=== PATIENT | female | born 1950 | race Caucasian/White ===

== ENCOUNTER 2019-12-04 14:52 | Outpatient (REF) | payer MEDICARE, OTHER, SELFPAY ==
--- NOTE | 2019-12-04 15:02 | XR_ITS ---
EXAMINATION: XR KNEE, LEFT CLINICAL INFORMATION: Pain left knee. COMPARISON: None TECHNIQUE: Four views of the left knee. FINDINGS: There are degenerative changes with narrowing medial knee joint compartment. There are marginal osteophytes medial lateral femoral condyles and borderline spurring tibial plateau. There is no erosive change or chondrocalcinosis. Lateral view shows small suprapatellar effusion. There is spurring at superior aspect patella. Hoffa's fat pad appears normal. There is no fracture or dislocation or destructive process. XR/XR knee LT 4V IMPRESSION: 1. Mild degenerative changes medial knee joint compartment with small suprapatellar effusion. 2. No erosive changes. 3. No fracture or destructive process.
== END 2019-12-04 14:53 | disposition home or self-care (01) ==
LOC: HO.HMGCX 14:52
PROVIDERS: PCP Internal Medicine; Visit Provider Hospitalist
DX: M25.562 Pain in left knee (principal)
CPT/HCPCS: 73564

== ENCOUNTER → 2019-12-12 11:16 | Outpatient (BNVA) | payer MEDICARE, OTHER, SELFPAY | PROVIDERS: PCP Internal Medicine; Visit Provider Orthopaedic Surgery | DX: S83.412A Sprain of medial collateral ligament of left knee, initial encounter (principal); X58.XXXA Exposure to other specified factors, initial encounter; Y93.9 Activity, unspecified; Y92.9 Unspecified place or not applicable; Y99.8 Other external cause status; Z88.1 Allergy status to other antibiotic agents | CPT/HCPCS: 99202 ==

== ENCOUNTER → 2019-12-26 11:17 | Outpatient (BNVA) | payer MEDICARE, OTHER, SELFPAY | PROVIDERS: Visit Provider Orthopaedic Surgery | DX: S83.412D Sprain of medial collateral ligament of left knee, subsequent encounter (principal); Z96.652 Presence of left artificial knee joint | CPT/HCPCS: 99212 ==

== ENCOUNTER → 2020-01-27 13:08 | Outpatient (BNVA) | payer MEDICARE, OTHER, SELFPAY | PROVIDERS: PCP Internal Medicine; Visit Provider Orthopaedic Surgery | DX: S83.412D Sprain of medial collateral ligament of left knee, subsequent encounter (principal) | CPT/HCPCS: 99212 ==

== ENCOUNTER 2020-04-02 13:00 | Outpatient (RCR) | payer MEDICARE, OTHER, SELFPAY ==
--- NOTE | 2020-01-30 12:09 | MHC.PT.EP ---
[facility] [place] Office [place] Office [place] Office [address] Vladimir Kaur [address] [phone] F: [phone] F: [phone] F: [phone] F: [phone] Physical Therapy Plan of Care Date of Evaluation: 01/30/20 Date of Surgery: Diagnosis: sprain of medial collateral ligament of L knee Assessment: 69 y/o F referred to PT for L MCL sprain. She sustained injury after falling from step-stool 12/04/2019 in which her R LE flexed in front of her and her L LE extended behind her. She landed on flexed L medial knee and had immediate bruising and swelling of L knee. Pain and difficulty with standing, housework, standing to cook, step-to pattern for stairs. Examination shows decreased L LE strength, decreased L knee AROM 0-8-103, decreased L HS/hip flexor length, normal SI mechanics, altered L patella static alignmnent, and impair gait pattern. Recommend PT 2x/week for 5 weeks to address impairments, implement HEP, and optimize functional mobility. Frequency and Duration: The patient will be seen 2x/week for 5 weeks Short Term Goals: 3 weeks: 1. I with HEP 2. Pt will demonstrate L knee AROM 0-115 Client Relations Associate Goals: 5 weeks: 1. I with HEP and self management of sx 2. Pt will demonstrate L LE strength improvement of one MMT grade and be able to ascend/descend stairs in step through pattern 3. Pt will be able to ambulate > 45 min with pain < 3/10 Treatment Plan: Modalities to reduce pain, spasms and effusion. Manual therapy to restore motion and function. Therapeutic exercise to improve strength and flexibility. Neuromuscular re-education for posture and balance. Therapeutic activities to return to functional activities of daily living. Electronically signed by: Agatha Bond PT Please sign and return to therapist. Thank you for your referral.
--- NOTE | 2020-04-30 09:19 | MHC.PT.DC ---
[facility] [place] Office [place] Office [place] Office [address] Vladimir Kaur [address] [phone] F: [phone] F: [phone] F: [phone] F: [phone] Physical Therapy Discharge Report Diagnosis: sprain of medial collateral ligament of L knee Date of Surgery: NA Date of Evaluation: 01/30/20 Date of Discharge: 04/30/20 Treatments to Date: 16 Cancellations to Date: 0 No Shows to Date: 1 Discharge Status: Improved Function Independent with HEP Discharge Summary: Pt did not f/u with further visits. At time of last appointment, she was able to don/doff clothing, perform stairs, and ambulate greater distances. She was still having inconsistent pain with painfree days and painful days with noting plateau in PT. It was recommended to f/u with MD at time of last visit. She has not f/u with PT and is therefore d/c. Electronically signed by: Agatha Bond PT Please sign and return to therapist. Thank you for your referral.
== END 2020-04-30 09:20 | disposition home or self-care (01) ==
LOC: HO.PTCHIC 13:00
PROVIDERS: PCP Internal Medicine; Visit Provider Orthopaedic Surgery
DX: S83.412D Sprain of medial collateral ligament of left knee, subsequent encounter (principal)
CPT/HCPCS: 97035; 97110; 97112; 97140; 97161; 97530

== ENCOUNTER → 2020-04-13 13:26 | Outpatient (BNVA) | payer MEDICARE, OTHER, SELFPAY | PROVIDERS: PCP Internal Medicine; Visit Provider Orthopaedic Surgery | DX: S83.242D Other tear of medial meniscus, current injury, left knee, subsequent encounter (principal) | CPT/HCPCS: 99212 ==

== ENCOUNTER 2020-04-16 13:26 | Outpatient (REF) | payer MEDICARE, OTHER, SELFPAY ==
--- NOTE | ~2020-04-16 | MR_ITS ---
EXAMINATION: MR KNEE WITHOUT CONTRAST, LEFT CLINICAL INFORMATION: Tear of medial meniscus. COMPARISON: X-rays of the left knee November 2019 TECHNIQUE: MRI of the knee without contrast was performed using routine sequences on a high-field scanner. FINDINGS: MENISCI: Medial Meniscus: There is blunting and slight irregularity of what appears to be an attenuated posterior horn. There is a small focus of increased signal extending to or adjacent to the tibial articular surface of the body. Findings likely reflect meniscal tearing. Lateral Meniscus: Subtle heterogeneous increased signal in the anterior horn and tiny focus of increased signal along the free edge of the body. Findings suspicious but not definitive for a tear. LIGAMENTS: Cruciate: ACL intact. PCL: There is heterogeneity and slight enlargement of the ligament. This likely reflects partial tearing versus mucoid degeneration. Collateral: Intact. EXTENSOR MECHANISM: Intact. ARTICULAR CARTILAGE/BONE: Patellofemoral Compartment: There is nonuniform up to high-grade cartilage loss most evident along the proximal half of the lateral facet and median ridge of the patella with associated subchondral cystic change and edema. A prominent osteophyte off the proximal pole of the patella and trochlear cartilage is intact. Overall moderate patellofemoral arthrosis given the patellar abnormality. Medial Compartment: There are marginal osteophytes. There is nonuniform up high-grade cartilage loss most evident along the weightbearing portion of the compartment on the femoral side primarily. Mild heterogeneity and surface irregularity on the tibial articular surface where there is also subchondral sclerosis. Overall rkjw-uj-ektdxvfk arthrosis. Lateral Compartment: There are marginal osteophytes. There is scattered cartilage heterogeneity in the weightbearing portion of the compartment on both the femoral and tibial articular surfaces. Overall mild arthrosis. JOINT FLUID AND BURSAE: There is a rdkm-px-auixxyqw joint effusion with synovitis along with a Dumas's cyst. MR/MR knee LT wo con IMPRESSION: Tear of the medial meniscus. Possible tear of the lateral meniscus. Abnormal posterior cruciate ligament compatible with mucoid degeneration or longitudinal intrasubstance partial tearing. Moderate patellofemoral arthrosis. Ofgm-dm-vngevypp medial compartment arthrosis. Mild lateral compartment arthrosis. Akcd-kh-ejtbpdjh joint effusion with synovitis and a jxbam-ww-wvzjshiz sized Dumas's cyst.
== END 2020-04-16 13:27 | disposition home or self-care (01) ==
LOC: HO.MRI 13:26
PROVIDERS: Visit Provider Orthopaedic Surgery
DX: S83.242A Other tear of medial meniscus, current injury, left knee, initial encounter (principal)
CPT/HCPCS: 73721

== ENCOUNTER → 2020-04-21 13:22 | Outpatient (BNVA) | payer MEDICARE, OTHER, SELFPAY | PROVIDERS: PCP Internal Medicine; Visit Provider Orthopaedic Surgery | DX: S83.242A Other tear of medial meniscus, current injury, left knee, initial encounter (principal); X58.XXXA Exposure to other specified factors, initial encounter; Z88.1 Allergy status to other antibiotic agents | CPT/HCPCS: 99212; Q3014 ==

== ENCOUNTER 2020-09-24 14:06 | Outpatient (REF) | payer MEDICARE, OTHER, SELFPAY | END 2020-09-24 14:07 | disposition home or self-care (01) | LOC: HO.HMGCLDS 14:06 | PROVIDERS: PCP Internal Medicine; Visit Provider Internal Medicine | DX: Z20.822 Contact with and (suspected) exposure to COVID-19 (principal) | CPT/HCPCS: C9803; U0003; U0005 ==

== ENCOUNTER 2020-10-25 08:49 | Outpatient (REF) | payer MEDICARE, OTHER, SELFPAY ==
[2020-10-25 11:52] LABS: Anion Gap 12 (12-20); Blood Urea Nitrogen 14 mg/dL (9-16); Calcium 9.6 mg/dL (8.4-10.2); Carbon Dioxide 27 mmol/L (22-29); Chloride 107 mmol/L (96-108); Cholesterol 237 mg/dL; Estimated Glomerular Filt Rate > 60; Glucose Fasting 92 mg/dL (60-99); HDL Cholesterol 63 mg/dL; LDL Cholesterol Calculated 159 mg/dl; Potassium 4.1 mmol/L (3.3-5.1); Sodium 142 mmol/L (135-145); Triglycerides 79 mg/dL
[2020-10-25 12:02] LABS: Vitamin D 25-OH Total 12.8 ng/mL (>30)
== END 2020-10-25 08:50 | disposition home or self-care (01) ==
LOC: HO.HMGCLDS 08:49
PROVIDERS: PCP Internal Medicine; Visit Provider Internal Medicine
DX: Z00.00 Encounter for general adult medical examination without abnormal findings (principal); M81.0 Age-related osteoporosis without current pathological fracture; I10 Essential (primary) hypertension; Z78.0 Asymptomatic menopausal state
CPT/HCPCS: 36415; 80048; 80061; 82306

== ENCOUNTER 2022-03-25 13:37 | Outpatient (REF) | payer MEDICARE, OTHER, SELFPAY ==
[2022-03-25 14:46] LABS: Influenza A PCR NEGATIVE (Negative); Influenza B PCR NEGATIVE (Negative); Resp Syncy Virus RNA Qual PCR NEGATIVE (Negative); SARS COV2 PCR INHOUSE NEGATIVE (Negative)
== END 2022-03-25 13:38 | disposition home or self-care (01) ==
LOC: HO.LNP 13:37
PROVIDERS: Visit Provider Physician Assistant Medical
DX: Z20.822 Contact with and (suspected) exposure to COVID-19 (principal); R05.9 Cough, unspecified
CPT/HCPCS: 0241U

== ENCOUNTER 2023-01-16 12:28 | Outpatient (REF) | payer MEDICARE, OTHER, SELFPAY ==
[2023-01-16 16:40] LABS: Anion Gap 13 (12-20); Aspartate Amino Transferase 17 U/L (5-31); Blood Urea Nitrogen 10 mg/dL (9-16); Calcium 9.9 mg/dL (8.4-10.2); Carbon Dioxide 27 mmol/L (22-29); Chloride 105 mmol/L (96-108); Cholesterol 238 mg/dL (<200); Estimated Glomerular Filt Rate > 60; Glucose Fasting 98 mg/dL (60-99); HDL Cholesterol 72 mg/dL (>40); LDL Cholesterol Calculated 149 mg/dL (<100); Potassium 4.4 mmol/L (3.3-5.1); Sodium 141 mmol/L (135-145); Triglycerides 86 mg/dL (<150)
[2023-01-16 16:43] LABS: Vitamin D 25-OH Total 56.6 ng/mL (>30)
== END 2023-01-16 12:29 | disposition home or self-care (01) ==
LOC: HO.HMGCLDS 12:28
PROVIDERS: PCP Internal Medicine; Visit Provider Internal Medicine
DX: E78.5 Hyperlipidemia, unspecified (principal); M81.0 Age-related osteoporosis without current pathological fracture; Z78.0 Asymptomatic menopausal state
CPT/HCPCS: 36415; 80048; 80061; 82306; 84450

== ENCOUNTER 2023-01-17 11:54 | Outpatient (AMB) | payer MEDICARE, OTHER, SELFPAY ==
[2023-01-17 12:44] VITALS: BP 132/80; PULSE 87; O2SAT 96; BMI 27.7
--- NOTE | 2023-01-17 12:44 | MHC.PC.OV ---
Vital Signs 01/17/23 12:44 Height 5 ft 5 in Weight 166 lb 4 oz BMI 27.7 BP 132/80 Blood Pressure Location Rt brachial Position Sitting Pulse 87 Pulse Source Pulse Oximeter Pulse Oximetry (%) 96 Oxygen Delivery Method Room Air Intake Visit Reasons: Medication review Intake Note: Pt is here to follow up for lab results and needed todays appt to get a refill sent for her Amitriptyline pt just got results of a biopsy of her skin form her Derm in [place] and she was told it was superficial basil cell carcinoma Allergies metronidazole [Flagyl] Allergy (Unknown, Verified 01/17/23 13:15) cdiff Medication List - Last Reconciled 01/17/23 by Raina Jj MD amitriptyline 75 mg (3 x 25 mg) PO BEDTIME [hyaluronic acid po; ] leg brace (Knee Support Brace) PLAYMAKER II, SPACER, WRAP, L S83.412A naproxen (Naprosyn) 500 mg PO BID sennosides (Senna Lax) 8.6 mg PO QDAY Tobacco use date assessed: 01/17/23 Fall risk assessment: No Falls in past year Last assessed Fall Risk: 01/17/23 Dental Screening Dental Screen Date: 01/17/23 Did you have a dental visit in the last 12 months?: Yes Did you have a dental problem in the last 6 months where you did not have access to dental care?: No Was dental information given to patient?: Patient has dentist HPI Medication review HPI Details 72-year-old lady with dyslipidemia, osteoporosis, and fibromyalgia, recently diagnosed to have basal cell cancer by her project engineering manager in [place], here today for follow-up. She has been having intermittent right upper quadrant pain, usually after food intake, accompanied occasional nausea but no vomiting, no fever . She also has been complaining of frequent hot flashes despite being post menopause now for several years. Would like to try the new medication for hot flashes. [facility] Medical History (Updated 03/12/23 @ 04:54 by Raina Jj MD) Vasomotor symptoms due to menopause Fibromyalgia Dyslipidemia Osteoporosis Surgical History History of breast biopsy History of appendectomy History of section Family History Daughter Microcephaly Daughter No problems noted. Daughter Microcephaly Mental health disorder Sister No problems noted. Sister No problems noted. Brother No problems noted. Brother No problems noted. Brother No problems noted. Brother No problems noted. Social History Housing: House Patient Tobacco Use Status: Former Tobacco user Years Smoked: 4 yrs e-Cigarette/Vaping Use: Never Used Second Hand Smoke Exposure: No Current occupational status: unemployed Current occupation: right handed Cognitive needs: No Hearing needs: No Vision needs: Yes Questionnaire PHQ-9 Over the last 2 weeks, how often have you been bothered by any of the following problems? Depression Screening Interpretation: Positive Depression Screening Follow-up: Existing condition and In treatment Depression Screening Done: Yes Source: Developed by Drs. Aroldo Mccoy, Renetta Young, Torrey Heller and colleagues, with an educational matt from [employer]. Thrive Questionnaire Date Thrive assessed: 10/28/20 NOAH-7 AMB Questionnaire NOAH-7 Date NOAH - 7 assessed: 10/28/20 Source: Developed by Drs. Aroldo Mccoy, Renetta Young, Torrey Heller and colleagues, with an educational matt from [employer]. Review of Systems Const Reports as per HPI and Denies fever(s) ENT Reports no additional complaints Card Denies chest pain, Denies lightheadedness and Denies dyspnea Resp Denies cough and Denies dyspnea GI Denies abdominal pain, Denies change in bowel habits and Denies heartburn Reports no additional complaints Musc Reports as per HPI, Denies abnormal gait, Denies deformity, Denies joint swelling, Denies muscle weakness, Denies numbness, Reports stiffness and Reports tingling Skin/Breast Denies lesions and Denies rash Neuro Denies abnormal gait, Denies numbness and Reports tingling Physical exam (Primary Care) Vital Signs: Last Vital Signs Pulse 87 01/17/23 12:44 BP 132/80 01/17/23 12:44 Pulse Ox 96 01/17/23 12:44 Oxygen Delivery Method Room Air 01/17/23 12:44 BMI result Body Mass Index 27.7 Tobacco/Smoking Status: Tobacco use Status Tobacco use date assessed 01/17/23 01/17/23 12:56 Patient Tobacco Use Status Former Tobacco user 01/17/23 12:47 e-Cigarette/Vaping Use Never Used 01/17/23 12:47 Depression Screening Interpretation: Positive Depression Screening Follow-up: Existing condition and In treatment Thrive Assessment: Date of Thrive Assessment Date Thrive assessed 10/28/20 01/17/23 12:47 Const General: cooperative, comfortable and no acute distress Neck Neck: Yes full ROM, Yes no lymphadenopathy and Yes supple Resp Effort & Inspection: normal respiratory effort and able to speak in complete sentences Auscultation: clear to auscultation bilaterally Cardio Rate: regular rate Rhythm: regular rhythm Heart sounds: S1 normal heart sound present and S2 normal heart sound present GI Inspection: Yes normal to inspection Palpation (GI): Soft to palpation, Tenderness to palpation present (GI) in the RUQ, no guarding and no masses Auscultation: normal bowel sounds Back/Spine/Pelvis Back: No back tenderness Skin General skin exam: no rashes or lesions noted Extrem General: Yes full ROM, Yes normal exam except as noted, Yes no joint enlargement, Yes no clubbing, cyanosis or edema, Yes no pedal edema, Yes no calf tenderness and Yes normal gait Results Reviewed Results Reviewed: SPEC : [id number] BERNABE: 01/16/23 STATUS: COMP REQ : [id number] RECD: 01/16/[address]: Raina Jj MD COMP: 01/16/23 ENTERED: 01/16/[address] [facility] [address]: ORDERED: Met Prof Fast, AST, Lipid Panel, Vitamin D 25-OH Test Result Flag Reference Site Sodium 141 135-145 mmol/L Potassium 4.4 3.3-5.1 mmol/L CL 105 96-108 mmol/L CO2 27 22-29 mmol/L Gap 13 12-20 BUN 10 9-16 mg/dL Creat 0.79 0.5-1.4 mg/dL EGFR > 60 NOTE: For -[place] individuals, multiply the result by 1.210. Chronic Kidney Disease: Estimated GFR < 60 mL/min/1.73m2 Severe Kidney Disease: Estimated GFR < 15 mL/min/1.73m2 FBS 98 60-99 mg/dL CA 9.9 8.4-10.2 mg/dL AST (GOT) 17 5-31 U/L Triglyceride 86 <150 mg/dL Desirable Triglyceride: less than 150 mg/dL Borderline High Triglyceride 150-199 mg/dL High Triglyceride: 200-499 mg/dL Very High Triglyceride: greater than or equal to 5OO mg/dL Cholesterol 238 H <200 mg/dL Desirable Cholesterol: less than 200 mg/dL Borderline High Cholesterol: 200-239 mg/dL High Cholesterol: greater than 239 mg/dL LDL Calculated 149 H <100 mg/dL Desirable LDL: less than 100 mg/dL Near Optimal/Above Optimal LDL: 110-129 mg/dL Borderline High LDL: 130-159 mg/dL High LDL: 160-189 mg/dL Very High LDL: greater than or equal to 190 mg/dL HDL 72 >40 mg/dL Desirable HDL: greater than 40 mg/dL Note: This HDL assay may give artificially low results in patients with liver disease. Vit D 25-OH Tot 56.6 >30 ng/mL Health Based Reference Values* < 20 ng/mL Deficient 20-30 ng/mL Insufficient > 30 ng/mL Sufficient Assessment and Plan Assessment & Plan (1) Right upper quadrant abdominal pain: Code(s): R10.11 - Right upper quadrant pain Plan: Stat ultrasound of abdomen ordered which showed done bilateral nonobstructing renal calculi, no gallstones or review obstruction seen. Advised trial of dbag-bvr-esgytfr Pepcid AC 20 mg taken once a day as needed , avoidance greasy acidic foods, call if no improvement of symptoms noted (2) Dyslipidemia: Code(s): E78.5 - Hyperlipidemia, unspecified Plan: Reviewed recent fasting labs with patient which showed LDL cholesterol still elevated but lower than last check. Adherence to a low-cholesterol diet and regular cardio exercise at least 30 minutes 3 to 4 times a week (3) Fibromyalgia: Code(s): M79.7 - Fibromyalgia Plan: Continued on amitriptyline (4) Vasomotor symptoms due to menopause: Code(s): N95.1 - Menopausal and female climacteric states Plan: Will try on Veozah 45 mg per tablet taken once a day Orders: Orders US abdomen complete 01/17/23 R10.11 - Right upper quadrant pain Medications: New sennosides (Senna Lax) takes 4 tabs at night and 3 tabs in am 8.6 mg PO QDAY Veozah (fezolinetant) 45 mg PO DAILY 30 tabs 0RF NS Coding Level of Care Code Est Pt Level 4 (39109) Diagnoses Right upper quadrant abdominal pain R10.11 Dyslipidemia E78.5 Fibromyalgia M79.7 Vasomotor symptoms due to menopause N95.1
== END 2023-01-17 15:09 | disposition home or self-care (01) ==
PROVIDERS: PCP Internal Medicine; Visit Provider Internal Medicine
DX: R10.11 Right upper quadrant pain (principal); E78.5 Hyperlipidemia, unspecified; M79.7 Fibromyalgia; N95.1 Menopausal and female climacteric states
CPT/HCPCS: 99214

== ENCOUNTER 2023-01-31 08:58 | Outpatient (REF) | payer MEDICARE, OTHER, SELFPAY ==
--- NOTE | ~2023-01-31 | US_ITS ---
EXAMINATION: US ABDOMEN COMPLETE CLINICAL INFORMATION: Right upper quadrant pain. COMPARISON: Ultrasound abdomen complete 08/31/2017. TECHNIQUE: Real-time imaging of the abdominal viscera. Technically limited study secondary to abdominal gas. FINDINGS: PANCREAS: Obscured by bowel gas ABDOMINAL AORTA: The proximal, mid, and distal segments are normal in caliber. INFERIOR VENA CAVA: Visualized portions are normal. LIVER: Normal. The liver is normal in size. The liver contour is normal. Parenchymal echogenicity is normal. No focal hepatic lesion. There is no intrahepatic biliary duct dilatation seen. GALLBLADDER: Normal. The gallbladder is physiologically distended without evidence of stones, sludge, polyps, wall thickening or pericholecystic fluid. No tenderness elicited during study. COMMON BILE DUCT: Normal in caliber measuring 0.41 cm in diameter. RIGHT KIDNEY: 5 x 4 x 5 mm cortical mid pole calculus. No hydronephrosis or focal parenchymal lesions. The kidney measures 10.6 cm in maximum dimension. LEFT KIDNEY: 7 x 6 x 5 mm upper pole cortical calculus. No hydronephrosis or focal parenchymal lesions. The kidney measures 10.8 cm in maximum dimension. SPLEEN: Normal. The spleen measures 9.4 cm in maximum dimension. FREE FLUID: None. US/US abdomen complete IMPRESSION: Question nonobstructing bilateral renal calculi. Pancreas obscured by bowel gas. If this is a region of clinical concern, consider other imaging modality such as CT.
== END 2023-01-31 08:59 | disposition home or self-care (01) ==
LOC: HO.HMGCX 08:58
PROVIDERS: PCP Internal Medicine; Visit Provider Internal Medicine
DX: R10.11 Right upper quadrant pain (principal)
CPT/HCPCS: 76700

== ENCOUNTER 2024-01-29 11:00 | Outpatient (AMB) | payer MEDICARE, OTHER, SELFPAY ==
--- NOTE | 2024-01-29 11:20 | A.OFFPC_ITS ---
Vital Signs 01/29/24 11:23 Height 5 ft 5 in Weight 168 lb BMI 28.0 BP 136/82 Blood Pressure Location Lt brachial Position Sitting Pulse 86 Pulse Source Pulse Oximeter Pulse Oximetry (%) 95 Oxygen Delivery Method Room Air Intake Visit Reasons: Annual PE Intake Note: Pt is here today for her PE: Last mammogram 12/13/20, colonoscopy 01/25/22 Allergies metronidazole [Flagyl] Allergy (Unknown, Verified 01/29/24 11:21) cdiff Tobacco use date assessed: 01/29/24 Fall risk assessment: No Falls in past year Last assessed Fall Risk: 01/29/24 Dental Screening Dental Screen Date: 01/29/24 Did you have a dental visit in the last 12 months?: Yes Did you have a dental problem in the last 6 months where you did not have access to dental care?: No Was dental information given to patient?: Patient has dentist [facility] Medical History (Updated 03/12/23 @ 04:54 by Raina Jj MD) Vasomotor symptoms due to menopause Fibromyalgia Dyslipidemia Osteoporosis Surgical History History of breast biopsy History of appendectomy History of section Family History Daughter Microcephaly Daughter No problems noted. Daughter Microcephaly Mental health disorder Sister No problems noted. Sister No problems noted. Brother No problems noted. Brother No problems noted. Brother No problems noted. Brother No problems noted. Social History Housing: House Patient Tobacco Use Status: Former Tobacco user Years Smoked: 4 yrs e-Cigarette/Vaping Use: Never Used Second Hand Smoke Exposure: No Current occupational status: unemployed Current occupation: right handed Cognitive needs: No Hearing needs: No Vision needs: Yes Questionnaire PHQ-9 Over the last 2 weeks, how often have you been bothered by any of the following problems? 1. Little interest or pleasure in doing things: not at all 2. Feeling down, depressed, or hopeless: not at all 3. Trouble falling or staying asleep, or sleeping too much: not at all 4. Feeling tired or having little energy: not at all 5. Poor appetite or overeating: not at all 6. Feeling bad about yourself - or that you are a failure or have let yourself or your family down: not at all 7. Trouble concentrating on things, such as reading the newspaper or watching television: not at all 8. Moving or speaking so slowly that other people could have noticed. Or the opposite - being so fidgety or restless that you have been moving around a lot more than usual: not at all 9. Thoughts that you would be better off or of hurting yourself in some way: not at all Total score: 0 Depression Screening Interpretation: Negative Depression Screening Done: Yes 77948 - PHQ-9 Billing: Yes Source: Developed by Drs. Aroldo Mccoy, Renetta Young, Torrey Heller and colleagues, with an educational matt from [employer]. Thrive Questionnaire Date Thrive assessed: 10/28/20 AUDIT C Alcohol Use Questionnaire (AUDIT-C) 1. How often do you have a drink containing alcohol?: Monthly or less 2. How many drinks containing alcohol do you have on a typical day when you are drinking?: 1 or 2 3. How often do you have six or more drinks on one occasion?: Never Total Score: 1 NOAH-7 AMB Questionnaire NOAH-7 Date NOAH - 7 assessed: 01/29/24 Feeling nervous, anxious, or on edge: 0 = Not at all Not being able to stop or control worryin = Not at all Worrying too much about different things: 0 = Not at all Trouble relaxin = Not at all Being so restless that it is hard to sit still: 0 = Not at all Becoming easily annoyed or irritable: 0 = Not at all Feeling afraid as if something awful might happen: 0 = Not at all Total NOAH-7 score (0-4 normal; 5-9 mild; 10-14 moderate; 15-21 severe): 0 Source: Developed by Drs. Aroldo Mccoy, Torrey Watson and colleagues, with an educational matt from [employer]. Physical exam (Primary Care) Vital Signs: Last Vital Signs Pulse 86 01/29/24 11:23 BP 136/82 01/29/24 11:23 Pulse Ox 95 01/29/24 11:23 Oxygen Delivery Method Room Air 01/29/24 11:23 BMI result Body Mass Index 28.0 Tobacco/Smoking Status: Tobacco use Status Tobacco use date assessed 01/29/24 01/29/24 11:22 Patient Tobacco Use Status Former Tobacco user 01/29/24 11:22 e-Cigarette/Vaping Use Never Used 01/29/24 11:22 PHQ-9: PHQ-9 Score PHQ-9: Total score 0 01/29/24 11:27 Depression Screening Interpretation: Negative Thrive Assessment: Date of Thrive Assessment Date Thrive assessed 10/28/20 01/29/24 11:22 Results AMB Urinalysis, Automated UA Leukoctes 70 Newton/uL Last Edit by Catherine Floyd CMA on 01/29/24 11:53 UA Nitrite Negative Last Edit by Catherine Floyd CMA on 01/29/24 11:53 UA Urobilinogen 0.2 mg/dL Last Edit by Catherine Floyd CMA on 01/29/24 11:53 UA Protein 0 mg/dL Last Edit by Catherine Floyd CMA on 01/29/24 11:53 UA pH 6.0 Last Edit by Catherine Floyd CMA on 01/29/24 11:53 UA Blood 0 Aryan/uL Last Edit by Catherine Floyd CMA on 01/29/24 11:53 UA Specific [place] 1.015 Last Edit by Catherine Floyd CMA on 01/29/24 11:53 UA Ketone Negative Last Edit by Catherine Floyd CMA on 01/29/24 11:53 UA Bilirubin 0 mg/dL Last Edit by Catherine Floyd CMA on 01/29/24 11:53 UA Glucose 0 mg/dL Last Edit by Catherine Floyd CMA on 01/29/24 11:53 Results Reviewed Results Reviewed: Laboratory Last Values Urine pH (Auto) 6.0 01/29/24 11:48 Specific [place] (Auto) 1.015 01/29/24 11:48 Urine Protein (Auto) 0 mg/dL 01/29/24 11:48 Glucose (UA)(Auto) 0 mg/dL 01/29/24 11:48 Urine Ketones (Auto) Negative 01/29/24 11:48 Urine Blood (Auto) 0 Aryan/uL 01/29/24 11:48 Urine Nitrite (Auto) Negative 01/29/24 11:48 Urine Bilirubin (Auto) 0 mg/dL 01/29/24 11:48 Urine Urobilinogen (Auto) 0.2 mg/dL 01/29/24 11:48 Leukocyte Esterase (Auto) 70 Newton/uL 01/29/24 11:48 Coding Level of Care Code Est Pt Prev Care >65y(30719) Diagnoses Osteoporosis M81.0 Dyslipidemia E78.5 Advanced directives, counseling/discussion Z71.89 Annual visit for general adult medical examination with abnormal findings Z00. Additional Codes PHQ-9 - 09512 - PHQ-9 Billing: Yes ([id number]) Assessment & Plan Assessment & Plan (1) Osteoporosis: Code(s): M81.0 - Age-related osteoporosis without current pathological fracture Category: Medical (2) Dyslipidemia: Code(s): E78.5 - Hyperlipidemia, unspecified Category: Medical (3) Advanced directives, counseling/discussion: Code(s): Z71.89 - Other specified counseling (4) Annual visit for general adult medical examination with abnormal findings: Code(s): Z00.01 - Encounter for general adult medical examination with abnormal findings Orders: Orders MM tomosynthesis screening BI Today M81.0 - Age-related osteoporosis without current pathological fracture, Z12.31 - Encounter for screening mammogram for malignant neoplasm of breast Lipid Panel Today E78.5 - Hyperlipidemia, unspecified, M81.0 - Age-related osteoporosis without current pathological fracture, Z00.01 - Encounter for general adult medical examination with abnormal findings, Z71.89 - Other specified counseling Basic Metabolic Panel Fasting Today E78.5 - Hyperlipidemia, unspecified, M81.0 - Age-related osteoporosis without current pathological fracture, Z00.01 - Encounter for general adult medical examination with abnormal findings, Z71.89 - Other specified counseling Alanine Aminotransferase Today E78.5 - Hyperlipidemia, unspecified, M81.0 - Age-related osteoporosis without current pathological fracture, Z00.01 - Encounter for general adult medical examination with abnormal findings, Z71.89 - Other specified counseling Vitamin D 25-OH Total Today E78.5 - Hyperlipidemia, unspecified, M81.0 - Age- related osteoporosis without current pathological fracture, Z00.01 - Encounter for general adult medical examination with abnormal findings, Z71.89 - Other specified counseling AMB Urinalysis Automated Today Z13.9 - Encounter for screening, unspecified XR DEXA axial skeleton Today M81.0 - Age-related osteoporosis without current pathological fracture, Z12.31 - Encounter for screening mammogram for malignant neoplasm of breast Aspartate Amino Transferase Today E78.5 - Hyperlipidemia, unspecified, M81.0 - Age-related osteoporosis without current pathological fracture, Z00.01 - Encounter for general adult medical examination with abnormal findings, Z71.89 - Other specified counseling Complete Blood Count Auto Diff Today E78.5 - Hyperlipidemia, unspecified, M81.0 - Age-related osteoporosis without current pathological fracture, Z00.01 - E ncounter for general adult medical examination with abnormal findings, Z71.89 - Other specified counseling TSH reflex Free T4 Today E78.5 - Hyperlipidemia, unspecified, M81.0 - Age- related osteoporosis without current pathological fracture, Z00.01 - Encounter for general adult medical examination with abnormal findings, Z71.89 - Other specified counseling
[2024-01-29 11:23] VITALS: BP 136/82; PULSE 86; O2SAT 95; BMI 28.0
== END 2024-01-29 12:59 | disposition home or self-care (01) ==
PROVIDERS: PCP Internal Medicine; Visit Provider Internal Medicine
DX: Z13.9 Encounter for screening, unspecified (principal)

== ENCOUNTER → 2024-01-29 11:00 | Outpatient (BNVA) | payer MEDICARE, OTHER, SELFPAY | PROVIDERS: PCP Internal Medicine; Visit Provider Internal Medicine | DX: Z00.01 Encounter for general adult medical examination with abnormal findings (principal); M81.0 Age-related osteoporosis without current pathological fracture; K59.00 Constipation, unspecified; H26.9 Unspecified cataract; E78.5 Hyperlipidemia, unspecified; Z87.891 Personal history of nicotine dependence; Z86.0100 Personal history of colon polyps, unspecified; Z71.89 Other specified counseling | CPT/HCPCS: 81003; 96127; 99212; 99397 ==

== ENCOUNTER 2024-08-05 11:05 | Outpatient (REF) | payer MEDICARE, OTHER, SELFPAY ==
--- OUTSIDE RECORDS SUMMARY | 2023-07-16 08:30 | XMS_ITS ---
Author Organization [facility] Address [address] [place] [address] Care Team Providers Care Benefit Director Name Role Phone Parviz JONES, Raina Marks Primary Care Provider Un available Veto Lopez Unavailable [phone] Encounters Encounter Location Date Provider Diagnosis [address] [address] 07/16/2023 Veto Lopez Plan Of Treatment No Information Progress Notes * Brian WASHINGTONenDOB:1950 (73 yo F)Acc No.[id number]:07/16/2023 Progress Notes Patient: Anh ALEJO Provider: Jett Lopez DPM :1950 A ge:72 Y S ex:Female Date:07/16/2023 Address:[id number] Pcp:Lion Wilkinson Subjective: * Chief Complaints: * * Medical History: Objective: * Vitals: Assessment: Plan: * Treatment: * Images: * The named appointment provid er may or may not be the originator of this progress note, and it is not deemed complete until electronically signed by the appointment provider. Sign off status: Pending * Provider: Jett Lopez DPM Date: 07/16/2023 Generated for Daniel jackman/Chandan/eTransmitting on: 08/05/2024 12:42 PM EDT
--- NOTE | ~2024-08-05 | MM_ITS ---
EXAMINATION: MM SCREENING DIGITAL BREAST TOMOSYNTHESIS, BILATERAL CLINICAL INFORMATION: Screening. Asymptomatic. COMPARISON: Mammography: Comparison is made with available priors TECHNIQUE: Digital breast mammography with tomosynthesis is performed in both the craniocaudal and mediolateral oblique views along with computer-aided detection (CAD). FINDINGS: The breasts are heterogeneously dense, which may obscure small masses (ACR BI-RADS breast composition Category c). Right marker clip. There are no significant masses, abnormal calcifications, or other abnormalities. MM/MM tomosynthesis screening BI IMPRESSION: No mammographic evidence of malignancy. ASSESSMENT: BI-RADS BI-RADS 2 - Benign Findings RECOMMENDATION: Routine annual mammography screening. 1 year F/U This examination should not preclude the clinical evaluation of a suspicious palpable abnormality. This patient's information was entered into a reminder system with a target due date for their next mammogram. Electronically signed by: Patricia Calvert DO 08/23/2024 02:44 PM EDT
--- NOTE | ~2024-08-05 | MM_ITS ---
EXAMINATION: DXA BONE DENSITY AXIAL HISTORY: Z12.31 - Encounter for screening mammogram for malignant neoplasm of breast TECHNIQUE: ProTip Dual energy absorptiometry (DEXA) of the lumbar spine, total left hip, and femoral neck was performed. COMPARISON: There are no prior studies for comparison. FINDINGS: The bone mineral density of the lumbar spine is 1.118, corresponding to a T-score of -0.7, and a Z-score of 0.9. This is indicative of normal bone mineral density. The bone mineral density of the left total hip is 0.697, corresponding to a T-score of -2.5, and a Z-score of -0.8. This is indicative of osteoporosis. The bone mineral density of the left femoral neck is 0.643, corresponding to a T-score of -2.8, and a Z-score of -1.0. This is indicative of osteoporosis. MM/XR DEXA axial skeleton IMPRESSION: Based on bone mineral density, and according to World Health Organization (WHO) criteria, the diagnosis is consistent with osteoporosis. All bone density values are in grams per centimeter squared (g/cm2). Statistically, 68% of repeat scans fall within 1 SD (+/- 0.010 g/cm2 for AP spine L1-L4) and 1 SD (+/- 0.012 g/cm2 for femur total) FRAX is a trademark of the [employer]'s [place] for Metabolic Bone Disease, a World Health Organization (WHO) Collaborating Center. Electronically signed by: Aroldo Rider MD 08/05/2024 11:41 AM EDT
== END 2024-08-05 11:06 | disposition home or self-care (01) ==
LOC: HO.MAMMO 11:05
PROVIDERS: Visit Provider Internal Medicine
DX: Z12.31 Encounter for screening mammogram for malignant neoplasm of breast (principal); M81.0 Age-related osteoporosis without current pathological fracture
CPT/HCPCS: 77063; 77067; 77080

== ENCOUNTER → 2024-08-05 11:30 | Outpatient (BNV) | payer MEDICARE, OTHER, SELFPAY | PROVIDERS: Visit Provider Radiology Diagnostic Radiology | DX: E28.39 Other primary ovarian failure (principal) | CPT/HCPCS: 77080 ==

== ENCOUNTER 2024-08-08 09:24 | Outpatient (AMB) | payer MEDICARE, OTHER, SELFPAY ==
--- OUTSIDE RECORDS SUMMARY | 2023-07-16 08:30 | XMS_ITS ---
Author Organization [facility] Address [address] [place] [address] Care Team Providers Care Cafeteria Attendant Name Role Phone Parviz JONES, Raina Marks Primary Care Provider Un available Veto Lopez Unavailable [phone] Encounters Encounter Location Date Provider Diagnosis [address] [address] 07/16/2023 Veto Lopez Plan Of Treatment No Information Progress Notes * Brian WASHINGTONenDOB:1950 (73 yo F)Acc No.[id number]:07/16/2023 Progress Notes Patient: Anh ALEJO Provider: Jett Lopez DPM :1950 A ge:72 Y S ex:Female Date:07/16/2023 Address:[place] Pcp:Lion Wilkinson Subjective: * Chief Complaints: * * Medical History: Objective: * Vitals: Assessment: Plan: * Treatment: * Images: * The named appointment provid er may or may not be the originator of this progress note, and it is not deemed complete until electronically signed by the appointment provider. Sign off status: Pending * Provider: Jett Lopez DPM Date: 07/16/2023 Generated for Daniel jackman/Chandan/Johnnieitting on: 08/08/2024 09:46 AM EDT
--- NOTE | 2024-08-08 09:24 | A.OFFPC_ITS ---
Intake Visit Reasons: discuss bone density scan Andriod Allergies metronidazole (Flagyl) Allergy (Unknown, Verified 08/08/24 09:46) cdiff Medication List - Last Reconciled 08/08/24 by Raina Jj MD alendronate 70 mg PO QWEEK 3 months amitriptyline 75 mg PO BEDTIME leg brace (Knee Support Brace) PLAYMAKER II, SPACER, WRAP, L S83.412A naproxen (Naprosyn) 500 mg PO BID PRN sennosides (Senna Lax) 8.6 mg PO QDAY Tobacco use date assessed: 08/08/24 Fall risk assessment: No Falls in past year Last assessed Fall Risk: 08/08/24 Dental Screening Dental Screen Date: 08/08/24 Did you have a dental visit in the last 12 months?: Yes Did you have a dental problem in the last 6 months where you did not have access to dental care?: No Was dental information given to patient?: Patient has dentist HPI discuss bone density scan Andriod HPI Details 73-year-old lady presents today via tele health to discuss results of recent bone density, done 08/05/2024, which showed the following. The bone mineral density of the lumbar spine is 1.118, corresponding to a T-score of -0.7, and a Z-score of 0.9. This is indicative of normal bone mineral density. The bone mineral density of the left total hip is 0.697, corresponding to a T-score of -2.5, and a Z-score of -0.8. This is indicative of osteoporosis She states that she had a previous bone density done somewhere in [place], results unavailable to us at present, which only showed presence of osteopenia. She has no history of fractures. Latest vitamin-D and calcium levels are within normal limits. Does not engage in any regular weight-bearing exercise. She states that she is currently being recovering from C difficile colitis and still has some bowel movement irregularities. She is currently being followed at GI at [place], Dr. Weathers diagnosed her with chronic idiopathic constipation. Denies any heartburn symptoms. COUNTS INCLUDE 234 BEDS AT THE [facility] Medical History Vasomotor symptoms due to menopause Fibromyalgia Dyslipidemia Osteoporosis Surgical History History of breast biopsy History of appendectomy History of section Family History Daughter Microcephaly Daughter No problems noted. Daughter Microcephaly Mental health disorder Sister No problems noted. Sister No problems noted. Brother No problems noted. Brother No problems noted. Brother No problems noted. Brother No problems noted. Social History Housing: House Patient Tobacco Use Status: Former Tobacco user Years Smoked: 4 yrs e-Cigarette/Vaping Use: Never Used Second Hand Smoke Exposure: No Current occupational status: unemployed Current occupation: right handed Cognitive needs: No Hearing needs: No Vision needs: Yes Questionnaire Thrive Questionnaire Date Thrive assessed: 01/29/24 NOAH-7 AMB Questionnaire NOAH-7 Date NOAH - 7 assessed: 01/29/24 Source: Developed by Drs. Aroldo Mccoy, Renetta Young, Torrey Heller and colleagues, with an educational matt from [employer]. Review of Systems Const Reports no additional complaints Eyes Reports no additional complaints ENT Reports no additional complaints Card Denies chest pain, Denies lightheadedness and Denies dyspnea Resp Denies cough and Denies dyspnea GI Reports as per HPI Reports no additional complaints Musc Reports as per HPI, Denies abnormal gait, Denies deformity, Denies joint swelling, Denies muscle weakness, Denies numbness and Reports stiffness Skin/Breast Denies lesions and Denies rash Neuro Denies abnormal gait and Denies numbness Psych Reports no additional complaints Endo Reports no additional complaints Jasbir/Lymph Reports no additional complaints Aller/Immun Reports no additional complaints Physical exam (Primary Care) Tobacco/Smoking Status: Tobacco use Status Tobacco use date assessed 08/08/24 08/08/24 09:26 Patient Tobacco Use Status Former Tobacco user 08/08/24 09:24 e-Cigarette/Vaping Use Never Used 08/08/24 09:24 Thrive Assessment: Date of Thrive Assessment Date Thrive assessed 01/29/24 08/08/24 09:24 Telehealth Telehealth Telehealth Platform: [facility] Location of provider rendering services: practice address Location of patient: address on file Patient Identification confirmed using: Name, : Yes Telehealth method: video Patient verbally consented to treatment: Yes Patient verbally consented to billing insurance company: Yes Patient informed of any privacy concerns related to visit: Yes Minutes spent on Phone/Video with Pt.: 20 Coding Level of Care Code Tele Est Pt Level 4 (20835) Diagnoses Osteoporosis M81.0 Assessment & Plan Assessment & Plan (1) Osteoporosis: Comment: left femoral neck on dexa scan 07/2024 Code(s): M81.0 - Age-related osteoporosis without current pathological fracture Category: Medical Plan: Discuss results of recent bone density scan with patient which showed presence of osteoporosis in left femoral neck. No history of fractures. Patient with no history of any gait instability or imbalance. Discuss treatment options for osteoporosis which includes medications in addition to adherence to getting regular exercise at least 30 minutes of weight-bearing exercise 3 to 4 times a week. Encouraged to explore joining osteoporosis exercises the [facility] or at the senior center. Reinforced importance of taking adequate calcium from dietary sources and take at least vitamin D3 at 2000 units daily. Patient decided to try starting on alendronate 70 mg per tablet to take once a week. Discussed instructions on how to properly taking the medication, advised to remain upright at least an hour after taking it, only take it with playing water and no food or any other drink. Will repeat another bone density scan in 2 years' time Medications: New alendronate 70 mg PO QWEEK 13 tabs 4RF 3 months
== END 2024-08-08 11:00 | disposition home or self-care (01) ==
LOC: HO.HMCC 09:24
PROVIDERS: PCP Internal Medicine; Visit Provider Internal Medicine
DX: M81.0 Age-related osteoporosis without current pathological fracture (principal)

== ENCOUNTER → 2024-08-08 09:24 | Outpatient (BNVA) | payer MEDICARE, OTHER, SELFPAY | PROVIDERS: PCP Internal Medicine; Visit Provider Internal Medicine | DX: Z13.89 Encounter for screening for other disorder (principal) ==

== ENCOUNTER 2024-10-15 08:10 | Outpatient (REF) | payer MEDICARE, OTHER, SELFPAY ==
--- OUTSIDE RECORDS SUMMARY | 2023-07-16 08:30 | XMS_ITS ---
Author Organization [facility] Address [address] [place] [address] Care Team Providers Care Sales Service Coordinator Name Role Phone Parviz JONES, Raina Marks Primary Care Provider Un available Veto Lopez Unavailable [phone] Encounters Encounter Location Date Provider Diagnosis [address] [address] 07/16/2023 Veto Lopez Plan Of Treatment No Information Progress Notes * Brian WASHINGTONenDOB:1950 (73 yo F)Acc No.[id number]:07/16/2023 Progress Notes Patient: Anh ALEJO Provider: Jett Lopez DPM :1950 A ge:72 Y S ex:Female Date:07/16/2023 Address:[place] Pcp:Lion Wilkinson Subjective: * Chief Complaints: * * Medical History: Objective: * Vitals: Assessment: Plan: * Treatment: * Images: * The named appointment provid er may or may not be the originator of this progress note, and it is not deemed complete until electronically signed by the appointment provider. Sign off status: Pending * Provider: Jett Lopez DPM Date: 07/16/2023 Generated for Daniel jackman/Chandan/Yudithsmitting on: 10/15/2024 08:41 AM EDT
--- OUTSIDE RECORDS SUMMARY | 2024-10-15 08:41 | XMS_ITS | Patient Health Record ---
Author Organization [facility] Address [address] [place] [address] Care Team Providers Care Milled Lumber Grader Name Role Phone Parviz JONES, Raina Marks Primary Care Provider Un available Veto Lopez Unavailable [phone] Reason For Referral No Information Plan Of Treatment No Information Insurance Providers Payer Name Payer Address Payer Phone Subscriber Number Group Number Insured Name Patient Relationship to Insured Coverage Start Date Coverage End Date [employer] [address] [place] [id number] Anh [place] Self - patient is the insured
--- OUTSIDE RECORDS SUMMARY | 2024-10-15 08:41 | XMS_ITS | Patient Health Record ---
Author Organization [facility] Address [address] [place] [id number] Care Team Providers Care Body Designer Name Role Phone Aroldo Reeves Unavailable [phone] Reason For Referral No Information Plan Of Treatment No Information
--- OUTSIDE RECORDS SUMMARY | 2024-10-15 08:41 | XMS_ITS | Clinical Summary ---
Author Organization [facility] [address] [facility] Address [address] [place] [address] Phone Care Team Providers Care Service Counselor Name Role Phone Raina Jj MD Primary Care Provider [phone] Allergies Active Allergy Reactions Criticality Noted Date Comments Metronidazole Diarrhea 06/20/2024 Medications alendronate (FOSAMAX) 5 mg tablet Take 1 tablet (5 mg total) by mouth 1 (one) time each day before breakfast. 04/02/2012 Active mesalamine (LIALDA) 1.2 gram EC tablet Take 1 tablet (1.2 g total) by mouth 2 (two) times a day. 04/17/2024 Active amitriptyline (ELAVIL) 25 mg tablet Take 1 tablet (25 mg total) by mouth 2 (two) times a day. 04/02/2012 Active senna 8.6 mg tablet Take 1 tablet (8.6 mg total) by mouth 1 (one) time each day. Active L. reuteri/L. rhamnosus (ULTRAFLORA WOMEN'S ORAL) Take by mouth. Active Active Problems Problem Noted Date Diagnosed Date Acute colitis 06/20/2024 Encounters Date Type Department Care Team Description 07/17/2024 Telephone Gastroenterology - [address] [address] Mary Ruano [place] 07/15/2024 2:40 PM EDT - 07/15/2024 11:59 PM EDT Hospital Encounter [facility] Xray [address] [place] [address] Chronic idiopathic constipation Discharge Disposition: Home or Self Care 07/15/2024 2:20 PM EDT Office Visit Gastroenterology - [address] [place] [address] Misti Weathers MD Chronic idiopathic constipation (Primary Dx); Irritable bowel syndrome with constipation from Last 3 Months Surgical History Surgery Date Site/Laterality Comments APPENDECTOMY SECTION, LOW TRANSVERSE Medical History Medical History Date Comments C. difficile diarrhea Osteoporosis Social History Tobacco Use Types Packs/Day Years Used Date Smoking Tobacco: Former Cigarettes Smokeless Tobacco: Never Tobacco Cessation:Counseling Given: Not Answered Alcohol Use Standard Drinks/Week Comments Yes 0 (1 standard drink = 0.6 oz pur e alcohol) Interpersonal Safety Answer Date Record ed Physical Abuse 06/21/2024 Verbal Abuse 06/21/2024 Comments Unknown Sex and Gender Information Value Date Recorded Sex Assigned at Not on file Legal Sex Female 10:52 AM EDT Gender Identity Not on file Sexual Orientation Not on file Obstetrics History Last Filed Vital Signs Vital Sign Reading Time Taken Comments Blood Pressure 148/79 06/24/2024 8:20 AM EDT Pulse 64 06/24/2024 8:20 AM EDT Temperature 36.1 C (97 F) 06/24/2024 8:20 AM EDT Respiratory Rate 14 06/24/2024 8:20 AM EDT Oxygen Saturation 100% 06/24/2024 8:20 AM EDT Inhaled Oxygen Concentration - - Weight 71.6 kg (157 lb 12.8 oz) 07/15/2024 2:04 PM EDT Height 165.1 cm (5' 5 ) 07/15/2024 2:04 PM EDT Body Mass Index 26.26 07/15/2024 2:04 PM EDT Plan of Treatment Health Maintenance Due Date Last Done Comments DTaP,Tdap,and Td Vaccines (1 - Tdap) 12/10/1967 Pneumococcal Vaccine: 50+ Years (1 of 1 - PCV) 1998 Zoster Vaccines (1 of 2) 1998 RSV Immunization Adult Patients (1 - 1-dose 75+ series) 12/10/2023 Depression Screening 02/13/2024 Hepatitis C Screening 05/13/2024 Medicare Annual Wellness Visit 05/13/2024 Osteoporosis Screening (Bone Density Screening) 05/13/2024 Social Influencers of Health Screening 05/13/2024 COVID-19 Vaccine (4 - 2024-2 6 season) 2024 12/31/2020, 06/02/2020, 05/05/2020 Influenza Vaccine (#1) 2024 Falls Risk Assessment 06/23/2025 06/23/2024 Colorectal Cancer Screening: Colonoscopy 01/26/2032 01/25/2022 HIB Vaccines Aged Out No longer eligi ble based on patient's age to complete this topic HPV Vaccines Aged Out No longer eligi ble based on patient's age to complete this topic Hepatitis A Vaccines Aged Out No long er eligible based on patient's age to complete this topic Hepatitis B Vaccines Aged Out No long er eligible based on patient's age to complete this topic IPV Vaccines Aged Out No longer eligi ble based on patient's age to complete this topic MMR Vaccines Aged Out No longer eligi ble based on patient's age to complete this topic Meningococcal ACWY Vaccine Aged Out N o longer eligible based on patient's age to complete this topic Meningococcal B Vaccine Aged Out No l onger eligible based on patient's age to complete this topic RSV Immunization Patients Under 20 months Aged Out No longer eligible b ased on patient's age to complete this topic Varicella Vaccines Aged Out No longer eligible based on patient's age to complete this topic Procedures Procedure Name Priority Date/Time Associated Diagnosis Comments XR ABDOMEN 1 VIEW Routine 07/15/2024 2:4 9 PM EDT Chronic idiopathic constipation EXTERNAL COLONOSCOPY REPORT Routine 01/25/2022 8:13 AM EST from Last 3 Months or Most Recently Relevant to Health Maintenance Results * XR Abdomen 1 View (07/15/2024 2:49 PM EDT) Anatomical Region Laterality Modality Body Radiographic Portia ging 07/15/2024 3:33 PM EDT Impressions 07/15/2024 3:53 PM EDT FINDINGS/IMPRESSION: Nonspecific bowel gas pattern with relatively decompressed descending colon and rectosigmoid as well as upstream, stool distended colon and air distended small bowel. Appearance is similar compared to the prior CT. Degenerative changes seen throughout the bones. Lung bases are clear.. -------- FINAL REPORT -------- Dictated By: HUSAM FUNEZ Dictated Date: 07/15/2024 15:33 ET Assigned Physician: HUSAM FUNEZ Reviewed and Electronically Signed By: HUSAM FUNEZ Signed Date: 07/15/2024 15:53 ET Workstation ID: [id number] Transcribed By: Self Edit Transcribed Date: 07/15/2024 15:33 ET Narrative 07/15/2024 3:53 PM EDT XR ABDOMEN 1 VIEW INDICATION: Pain, constipation TECHNIQUE: XR ABDOMEN 1 VIEW COMPARISON: 06/20/2024 Procedure Note Husam Funez MD - 07/15/2024 XR ABDOMEN 1 VIEW INDICATION: Pain, constipation TECHNIQUE: XR ABDOMEN 1 VIEW COMPARISON: 06/20/2024 IMPRESSION: FINDINGS/IMPRESSION: Nonspecific bowel gas pattern with relativelydecompressed descending colon and rectosigmoid as well as upstream, stooldistended colon and air distended small bowel. Appearance is similarcompared to the prior CT. Degenerative changes seen throughout the bones.Lung bases are clear.. -------- FINAL REPORT -------- Dictated By: HUSAM FUNEZ Dictated Date: 07/15/2024 15:33 ET Assigned Physician: HUSAM FUNEZ Reviewed and Electronically Signed By: HUSAM FUNEZ Signed Date: 07/15/2024 15:53 ET Workstation ID: [id number] Transcribed By: Self Edit Transcribed Date: 07/15/2024 15:33 ET Misti Weathers MD IMG XR PROCEDURES Final Result * External Colonoscopy Report (01/25/2022 8:13 AM EST) Anatomical Region Laterality Modality Endoscopy Historical Provider GI~PROCEDURE ORDERABLES F inal Result from Last 3 Months or Most Recently Relevant to Health Maintenance Insurance MEDICARE [facility] Advance Directives * Full Code - Default (Latest Code Status on File) Date Activated Date Inactivated Comments 06/20/2024 11:36 PM 06/24/2024 11:58 AM This is ord er is used when code status has not been discussed with the patient, or code status is otherwise unknown/unconfirmed To update the patient's code status, place a code status order. Do not modify or discontinue any currently active code status orders. * Full Code - Confirmed Date Activated Date Inactivated Comments 06/20/2024 11:28 PM 06/20/2024 11:[address] atus was ascertained in the following way: Code status discussion: discussion with patient To update the patient's code status, place a code status order. Do not modify or discontinue any currently active code status orders. Care Teams Service Counselor Relationship Specialty Start Date End Date Raina Jj MD [address] [place] [address] PCP - General Internal Medicine 05/13/24
--- OUTSIDE RECORDS SUMMARY | 2024-10-15 08:42 | XMS_ITS | Patient Health Record ---
Author Organization [facility] wil [place] Address [address] [facility] [place] [place] [address] Care Team Providers Care Home Economist Consumer Service Name Role Phone Parviz JONES, Raina Marks Primary Care Provider Un available Veto Lopez Unavailable [phone] Allergies Allergen (clinical drug ingredient) Drug/Non Drug Allergy documented on EMR Reaction Allergy Type Onset Date Status metronidazole Flagyl diarrhea Drug Allergy Act maliha Reason For Referral No Information Medications Medication SIG (Take, Route, Fr equency, Duration) Notes Start Date End Date Status Amitriptyline HCl 25 MG (Prior Auth: Rx Ref#:[id number]) Oral; Duration: 90 Active Social History Tobacco Use: Social History Observation Description Date Details (start date - stop date) Former Smoker NA - NA Tobacco Use/Smoking Question Answer Notes Are you a: former smoker When did you stop smoking? 23 yrs of age Additional Findings: Tobacco Non-User Current no n-smoker Alcohol Screen Question Answer Notes Did you have a drink contain ing alcohol in the past year? Yes How often did you have a dri nk containing alcohol in the past year? Monthly or less (1 point) Points 1 Interpretation Negative Tobacco use other than smoking: Question Answer Notes Are you an other tobacco user? No Problems Problem Type SNOMED Code ICD Code Onset Dates Problem Status W/U Status Risk Notes Problem Acquired hallux valgus (50173598) Hallux valgus (acquired), left foot (M20.12) Active confirmed Problem Acquired hallux valgus (19476828) Hallux valgus (acquired), right foot (M20.11) Active confirmed Problem Other hammer toe(s) (acquired), left foot (M20.42) Active confirmed Plan Of Treatment Pending Test Test Name Order Date X ray : Foot, left 3V 11/08/2018 X ray : Foot, right 3V 11/08/2018 Insurance Providers Payer Name Payer Address Payer Phone Subscriber Number Group Number Insured Name Patient Relationship to Insured Coverage Start Date Coverage End Date Medicare [employer] [address] [place] [phone] [id number] Juany Rucker Self - patient is the insured [facility] [address] [place] [phone] [id number] Juany Rucker Self - patient is the insured Medical (General) History Medical History History ICD Code Measles Chicken pox Surgical History Surgery Date(Month/Year) appendectomy 05/1967 section
[2024-10-15 10:15] LABS: MANUAL DIFF FLAG NO
[2024-10-15 10:21] LABS: Hematocrit 42.8 % (37.0-47.0); Hemoglobin 13.9 g/dl (12.0-16.0); Imm Gran Abs Auto 0.03 X10*3/uL (0.00-0.03); Imm Gran Pct Auto 0.4 % (0.0-0.4); Lymphocytes Absolute Auto 3.0 X10*3/uL (1.2-4.9); Mean Corpuscular HGB Conc 32.5 g/dl (31.0-35.0); Mean Corpuscular Hemoglobin 29.3 pg (27.0-33.0); Mean Corpuscular Volume 90.3 fL (80.0-98.0); NRBC Abs Auto 0.000 X10*3/uL (0.0-0.012); NRBC Pct Auto 0.0 /100WBC (0.0-0.2); Platelet Count 237 X10*3/uL (160-400); Red Blood Count 4.74 X10*6/uL (4.20-5.50); White Blood Count 7.7 X10*3/uL (4.8-10.8)
[2024-10-15 10:49] LABS: Alanine Aminotransferase 28 U/L (0-31); Anion Gap 12 (12-20); Aspartate Amino Transferase 26 U/L (5-31); Blood Urea Nitrogen 15 mg/dL (9-16); Calcium 9.5 mg/dL (8.4-10.2); Carbon Dioxide 29 mmol/L (22-29); Chloride 107 mmol/L (96-108); Cholesterol 234 mg/dL (<200); Estimated Glomerular Filt Rate > 60; HDL Cholesterol 61 mg/dL (>40); Potassium 3.8 mmol/L (3.3-5.1); Sodium 144 mmol/L (135-145); Triglycerides 87 mg/dL (<150)
== END 2024-10-15 08:11 | disposition home or self-care (01) ==
LOC: HO.HMGCLDS 08:10
PROVIDERS: PCP Internal Medicine; Visit Provider Internal Medicine
DX: Z00.01 Encounter for general adult medical examination with abnormal findings (principal); E78.5 Hyperlipidemia, unspecified; M81.0 Age-related osteoporosis without current pathological fracture; Z71.89 Other specified counseling
CPT/HCPCS: 36415; 80048; 80061; 82306; 84443; 84450; 84460; 85025

== ENCOUNTER 2025-01-29 10:12 | Outpatient (AMB) | payer MEDICARE, OTHER, SELFPAY ==
--- NOTE | 2025-01-29 10:24 | A.OFFPC_ITS ---
Vital Signs 01/29/25 10:31 Height 5 ft 5 in Weight 157 lb BMI 26.1 BP 112/70 Blood Pressure Location Lt brachial Position Sitting Respiration 16 Pulse 83 Pulse Source Pulse Oximeter Temp 98.3 F Temp Source Oral Pulse Oximetry (%) 95 Oxygen Delivery Method Room Air Intake Visit Reasons: Annual PE Intake Note: Pt is here today for her PE: last mammogram 08/05/24, bone density scan 08/05/24, colonoscopy 01/25/22 Company Doctor Required: No Allergies metronidazole (Flagyl) Allergy (Unknown, Verified 02/08/25 03:27) cdiff Medication List - Last Reconciled 02/08/25 by Raina Jj MD alendronate 70 mg PO QWEEK 3 months amitriptyline 75 mg PO BEDTIME Lactobac no.51-Bifidobact no.4 50 billion cell (up4 Probiotics Ultra) caps PO leg brace (Knee Support Brace) PLAYMAKER II, SPACER, WRAP, L S83.412A naproxen (Naprosyn) 500 mg PO BID PRN sennosides (Senna Lax) 8.6 mg PO QDAY Tobacco use date assessed: 01/29/25 Fall risk assessment: No Falls in past year Last assessed Fall Risk: 01/29/25 Dental Screening Dental Screen Date: 01/29/25 Did you have a dental visit in the last 12 months?: Yes Did you have a dental problem in the last 6 months where you did not have access to dental care?: No Was dental information given to patient?: Patient has dentist HPI Annual PE HPI Details 74 year-old female presenting for physic al exam. -up-to-date with her breast cancer florindagal megan, last done earlier this year with a negative findings. Dense breast tissue noted -she had a bone density done 08/05/2024 w [facility] showed presence of osteoporosis, was started on alendronate 70 mg once a week, tolerating medication well -up-to-date with her colon cancer screen ing, with last colonoscopy done 01/25/2022 with removal of precancerous polyps, next colon cancer screening due again in 2026 - Aversion to vaccines: Never received f andree or pneumonia vaccines. Received initial COVID-19 vaccines but none thereafter. - Constipation: Chronic issue, managed w pamela Osullivan; did not respond to previous treatments including Linzess, Amitiza, and other agents. - Hypercholesterolemia: Previous labs in dicated rising LDL cholesterol levels. - Cataracts: Early-stage cataract noted during eye exam. - Sleep disturbance: Managed with Amitri ptyline from [place]; issues with medication adherence while traveling. [facility] Medical History (Updated 02/08/25 @ 03:35 by Raina Jj MD) History of Clostridioides difficile colitis Chronic constipation Vasomotor symptoms due to menopause Fibromyalgia Dyslipidemia Osteoporosis Surgical History History of breast biopsy History of appendectomy History of section Family History Daughter Microcephaly Daughter No problems noted. Daughter Microcephaly Mental health disorder Sister No problems noted. Sister No problems noted. Brother No problems noted. Brother No problems noted. Brother No problems noted. Brother No problems noted. Social History Housing: House Patient Tobacco Use Status: Former Tobacco user Years Smoked: 4 yrs e-Cigarette/Vaping Use: Never Used Second Hand Smoke Exposure: No Current occupational status: unemployed Current occupation: right handed Cognitive needs: No Hearing needs: No Vision needs: Yes Questionnaire PHQ-9 Over the last 2 weeks, how often have you been bothered by any of the following problems? 1. Little interest or pleasure in doing things: not at all 2. Feeling down, depressed, or hopeless: not at all 3. Trouble falling or staying asleep, or sleeping too much: not at all 4. Feeling tired or having little energy: not at all 5. Poor appetite or overeating: not at all 6. Feeling bad about yourself - or that you are a failure or have let yourself or your family down: not at all 7. Trouble concentrating on things, such as reading the newspaper or watching television: not at all 8. Moving or speaking so slowly that other people could have noticed. Or the opposite - being so fidgety or restless that you have been moving around a lot more than usual: not at all 9. Thoughts that you would be better off or of hurting yourself in some way: not at all Total score: 0 Depression Screening Interpretation: Negative Depression Screening Done: Yes 69902 - PHQ-9 Billing: Yes Source: Developed by Drs. Aroldo Mccoy, Torrey Watson and colleagues, with an educational matt from [employer]. Thrive Questionnaire Date Thrive assessed: 01/29/25 I am a: Patient What is your living situation today?: I have a steady place to live Do you have trouble paying for medicines?: No Do you have trouble getting transportation to medical appointments?: No Do you have trouble paying your heating and electricity bill?: No Do you have trouble taking care of your child, family member or friend?: No Do you have trouble with day-to-day activities such as bathing, preparing meals, shopping, managing finances, etc.?: No Are you currently unemployed and looking for a job?: No Are you interested in more education?: No Please select the resources that you would like help with: None Currently or been in a relationship where the following occur: No concerns reported THRIVE Score: 0 AUDIT C Alcohol Use Questionnaire (AUDIT-C) 1. How often do you have a drink containing alcohol?: 2-4 times a month Total Score: 2 Score Reviewed/Action Taken: Yes NOAH-7 AMB Questionnaire NOAH-7 Date NOAH - 7 assessed: 01/29/25 Feeling nervous, anxious, or on edge: 0 = Not at all Not being able to stop or control worryin = Not at all Worrying too much about different things: 0 = Not at all Trouble relaxin = Not at all Being so restless that it is hard to sit still: 3 = Nearly every day Becoming easily annoyed or irritable: 0 = Not at all Feeling afraid as if something awful might happen: 0 = Not at all Total NOAH-7 score (0-4 normal; 5-9 mild; 10-14 moderate; 15-21 severe): 3 Source: Developed by Drs. Aroldo Mccoy, Torrey Watson and colleagues, with an educational matt from [employer]. NOAH-7 Assessment Billing NOAH-7 Assessment Tool: NOAH-7 Assessment 71786 Review of Systems Const Reports no additional complaints Eyes Reports no additional complaints ENT Reports no additional complaints Card Denies chest pain, Denies lightheadedness and Denies dyspnea Resp Denies cough and Denies dyspnea GI Reports no additional complaints Reports no additional complaints Musc Reports as per HPI, Denies abnormal gait, Denies deformity, Denies joint swelling, Denies muscle weakness, Denies numbness and Reports stiffness Skin/Breast Denies lesions and Denies rash Neuro Denies abnormal gait and Denies numbness Psych Reports no additional complaints Endo Reports no additional complaints Jasbir/Lymph Reports no additional complaints Aller/Immun Reports no additional complaints Physical exam (Primary Care) Vital Signs: Last Vital Signs Temp 98.3 F 01/29/25 10:31 Pulse 83 01/29/25 10:31 Resp 16 01/29/25 10:31 BP 112/70 01/29/25 10:31 Pulse Ox 95 01/29/25 10:31 Oxygen Delivery Method Room Air 01/29/25 10:31 BMI result Body Mass Index 26.1 Tobacco/Smoking Status: Tobacco use Status Tobacco use date assessed 01/29/25 01/29/25 10:27 Patient Tobacco Use Status Former Tobacco user 01/29/25 10:24 e-Cigarette/Vaping Use Never Used 01/29/25 10:24 Depression Screening Interpretation: Negative Thrive Assessment: Date of Thrive Assessment Date Thrive assessed 01/29/25 01/29/25 10:27 Currently or been in a relationship where the following occur: No concerns reported Advance Care Planning discussion: Completed/Scanned Date of discussion: 01/29/25 Who was present: Patient Forms completed: Health Care Proxy Time spent: 16-45 minutes Actual minutes spent: 3 Const General: cooperative, comfortable and no acute distress Orientation/consciousness: patient oriented x3 HENMT Head: Yes normocephalic Ears: external ears normal, TM's normal bilaterally and EAC's normal General nose exam: Normal external nose present Face and sinus: Yes face symmetric Eyes General: appearance normal, both eyes and all related structures Neck Neck: Yes full ROM, Yes no lymphadenopathy and Yes supple Chest Breast/axilla palpation: normal palpation of the breasts Resp Effort & Inspection: normal respiratory effort and able to speak in complete sentences Auscultation: clear to auscultation bilaterally Cardio Rate: regular rate Rhythm: regular rhythm Heart sounds: S1 normal heart sound present and S2 normal heart sound present GI Inspection: Yes normal to inspection Palpation (GI): Soft to palpation and no masses Auscultation: normal bowel sounds Back/Spine/Pelvis Back: No back tenderness Skin General skin exam: no rashes or lesions noted Neuro General: patient oriented x3, gait normal, moves all extremities, Normal light touch and pain sensation and no focal motor deficits Extrem General: Yes full ROM, Yes no joint enlargement, Yes no clubbing, cyanosis or edema and Yes normal gait Psych Appearance: grossly normal Mental Status: mental status grossly normal Speech and movement: Normal speech and movement present Affect: normal affect Results Reviewed Results Reviewed: Name: Juany Washington Age/Sex: 73/F : 1950 Unit#: [id number] Attend Dr: Raina Jj MD Re10/15/24 Status: DEP REF Location: [facility] Disch: SPEC : [id number] BERNABE: 10/15/24 STATUS: COMP REQ : [id number] RECD: 10/15/[address] [facility] DR: Raina Jj MD COMP: 10/15/24 ENTERED: 10/15/[address] [facility] [address]: ORDERED: CBC Auto Diff Test Result Flag Reference WBC 7.7 4.8-10.8 X10*3/uL RBC 4.74 4.20-5.50 X10 *6/uL HGB 13.9 12.0-16.0 g/dl HCT 42.8 37.0-47.0 % MCV 90.3 80.0-98.0 fL MCH 29.3 27.0-33.0 pg MCHC 32.5 31.0-35.0 g/dl RDW 14.6 11.0-16.0 % PLT 237 160-400 X10*3/uL MPV 12.1 9.4-12.3 fL Neut Pct Auto 48.6 45-73 % ImGran Pct Auto 0.4 0.0-0.4 % Lymp Pct Auto 38.8 20-40 % [place] Pct Auto 7.3 2-11 % Eos Pct Auto 4.0 0-4 % Baso Pct Auto 0.9 0-2 % NRBC Pct Auto 0.0 0.0-0.2 /100WBC ANC Neut Abs # 3.7 2.0-8.3 x10*3/uL ImGran Abs Auto 0.03 0.00-0.03 X10*3/uL Lymph Abs Auto 3.0 1.2-4.9 X10*3/uL [place] Abs Auto 0.6 0.1-1.2 X10*3/uL Eos Abs Auto 0.3 0.0-0.4 X10*3/uL Baso Abs Auto 0.1 0.0-0.2 X10*3/uL NRBC Abs Auto 0.000 0.0-0.012 X10*3/uL Name: Juany Washington Age/Sex: 73/F : 1950 Unit#: [id number] Attend Dr: Raina Jj MD Re10/15/24 Status: DEP REF Location: [facility] Disch: SPEC : [id number] BERNABE: 10/15/24 STATUS: COMP REQ : [id number] RECD: 10/15/[address]: Raina Jj MD COMP: 10/15/24 ENTERED: 10/15/[address]: ORDERED: Met Prof Fast, AST, ALT, Lipid Panel, Vitamin D 25-OH, TSH Rflx Test Result Flag Reference Sodium 144 135-145 mmol/L Potassium 3.8 3.3-5.1 mmol/L CL 107 96-108 mmol/L CO2 29 22-29 mmol/L Gap 12 12-20 BUN 15 9-16 mg/dL Creat 0.86 0.5-1.4 mg/dL eGFR > 60 Chronic Kidney Disease: Estimated GFR < 60 mL/min/1.73m2 Severe Kidney Disease: Estimated GFR < 15 m L/min/1.73m2 FBS 87 60-99 mg/dL CA 9.5 8.4-10.2 mg/dL AST (GOT) 26 5-31 U/L ALT (GPT) 28 0-31 U/L Triglyceride 87 <150 mg/dL Desirable Triglyceride: less than 150 mg/dL Borderline High Triglyceride 150-199 mg/dL High Triglyceride: 200-499 mg/dL Very High Triglyceride: greater than or equal to 5OO mg/dL Cholesterol 234 H <200 mg/dL Desirable Cholesterol: less than 200 mg/dL Borderline High Cholesterol: 200-239 mg/dL High Cholesterol: greater than 239 mg/dL LDL Calculated 156 H <100 mg/dL Desirable LDL: less than 100 mg/dL Near Optimal/Above Optimal LDL: 110-129 mg/dL Borderline High LDL: 130-159 mg/dL High LDL: 160-189 mg/dL Very High LDL: greater than or equal to 190 mg/dL HDL 61 >40 mg/dL Desirable HDL: greater than 40 mg/dL Note: This HDL assay may give artificially low results in patients with liver disease. Vitamin D 25-OH 42.5 >30 ng/mL Health Based Reference Values* < 20 ng/mL Deficient 20-30 ng/mL Insufficient > 30 ng/mL Sufficient *Justice SANTILLAN. N Engl J Med. 2007;357:266-280 There is no well-established upper level of normal vit aly D levels. Some laboratories use 50 ng/mL as an upper limit of normal. However, toxicity is patient-dependent and may occur at any level. Careful correlation with the patient's presentation is necessary and, if there is concern for vitamin D toxicity, treatment should be considered irrespective of the serum level. Care must be taken in interpreting Vitamin D results from different laboratories and methodologies. Published data demonstrated that results from patients undergoing hemodialysis may show a negative bias when tested with various automated 25-OH vitamin D assays when compared to LC-MS/MS. When testing samples from patients whose predominant form of Vitamin D is Vitamin D2, such as patients receiving Vitamin D2 supplementation, results that are subtherapeutic should be confirmed with another method such as LC-MS/MS. TSH 1.59 0.32-4.0 uIU/mL Coding Level of Care Code Est Pt Prev Care >65y(39628) Diagnoses Annual visit for general adult medical examination with abnormal findings Z00.01 Age-related osteoporosis without current pathological fracture M81.0 Osteoporosis type: age-related Presence of current pathological fracture: without current pathological fracture Dyslipidemia E78.5 Chronic constipation K59.09 Advance directive discussed with patient Z71.89 Additional Codes NOAH-7 Assessment Billing - NOAH-7 Assessment Tool: NOAH-7 Assessment 01851 ([id number]) PHQ-9 - 60495 - PHQ-9 Billing: Yes ([id number]) Vital Signs *Quality* - Advance Care Planning discussion: Completed/Scanned ([id number]) Vital Signs *Quality* - Time spent: 16-45 minutes ([id number]) Assessment & Plan Assessment & Plan (1) Annual visit for general adult medical examination with abnormal findings: Code(s): Z00.01 - Encounter for general adult medical examination with abnormal findings Plan: . Recommended dental visit every 6 months and regular eye exams, at least every 2 years. Take adequate calcium in diet and vitamin-D 3 at 2000 IU per cap once a day, in addition to weight-bearing exercises to help maintain good muscle tone and weight control. Instructed to do self-breast exam, and recommended to get yearly mammogram, starting at age 40. Does not want to get any vaccines, colonoscopy due again in 2026 due to history of precancerous polyps in colon. (2) Osteoporosis: Comment: left femoral neck on dexa scan 07/2024 Code(s): M81.0 - Age-related osteoporosis without current pathological fracture Category: Medical Qualifiers: Osteoporosis type: age-related Presence of current pathological fracture: without current pathological fracture Qualified Code(s): M81.0 - Age- related osteoporosis without current pathological fracture Plan: Started on alendronate July of 2024, tolerating medication well, to continue taking adequate calcium from dietary sources and continue taking vitamin-D 3 supplements at least 2000 units daily. Importance of doing regular weight- bearing exercises also stressed to patient. Repeat another bone density scan in 2026 (3) Dyslipidemia: Code(s): E78.5 - Hyperlipidemia, unspecified Category: Medical Plan: Latest fasting lipids levels showed higher LDL cholesterol. Repeat fasting lipid levels ordered. Reinforced importance of adhering to healthy eating habits and regular exercise. (4) Chronic constipation: Code(s): K59.09 - Other constipation Category: Medical Plan: Currently taking senna as needed (5) Advance directive discussed with patient: Code(s): Z71.89 - Other specified counseling Plan: Initiated the conversation about Advanced Directives. Advanced Directives help patients prepare for current and future decisions about their medical treatment and place of care. Discussed with patient that it is a process where a patients current condition and prognosis are reviewed, their wishes for information regarding their illness are elicited, and likely medical dilemmas are presented and options discussed. Healthcare proxy form completed today. The form can be amended as needed, reviewed yearly and make changes as needed Orders: Orders Lipid Panel 01/29/25 E78.5 - Hyperlipidemia, unspecified
[2025-01-29 10:31] VITALS: BP 112/70; PULSE 83; RESP 16; TEMP 36.8; O2SAT 95; BMI 26.1
--- OUTSIDE RECORDS SUMMARY | 2025-01-29 12:31 | XMS_ITS | Patient Health Record ---
Author Organization [facility] Address [address] [place] [id number] Care Team Providers Care Game Programer Name Role Phone Aroldo Reeves Unavailable [phone] Reason For Referral No Information Plan Of Treatment No Information
--- OUTSIDE RECORDS SUMMARY | 2025-01-29 12:31 | XMS_ITS | Clinical Summary ---
Author Organization [facility] [address] [facility] Address [address] [place] [address] Phone Care Team Providers Care Senior Sourcing Manager Name Role Phone Raina Jj MD Primary Care Provider [phone] Allergies Active Allergy Reactions Criticality Noted Date [...] Noted Date Diagnosed Date Acute colitis 06/20/2024 Surgical History Surgery Date Site/Laterality Comments APPENDECTOMY [...] Safety Answer Date Record ed Physical Abuse Unrecognized value 06/21/2024 Verbal Abuse Unrecognized value 06/21/2024 Comments Unknown Sex and Gender Information Value Date Recorded Sex Assigned at Not on file Legal Sex Female 10:52 AM EDT Gender Identity Not on file Sexual Orientation Not on file Last Filed Vital Signs Vital Sign Reading [...] Assessment 06/23/2025 06/23/2024 Colorectal Cancer Screening: Colonoscopy Discontinued 01/25/2022, 01/25/2022 HIB Vaccines Aged Out No longer [...] 20 months Aged Out No longer eligible based on patient's age to complete this topic Varicella Vaccines Aged Out No longer eligible based on patient's age to complete this topic Procedures Procedure Name Priority Date/Time Associated Diagnosis Comments EXTERNAL COLONOSCOPY REPORT Routine 01/25/2022 10:20 AM EST from Last 3 Months or Most Recently Relevant to Health Maintenance Results * External Colonoscopy Report (01/25/2022 10:20 AM EST) Anatomical Region Laterality Modality Endoscopy us Historical Provider GI~PROCEDURE ORDERABLES F inal Result from Last 3 Months or Most Recently Relevant to Health Maintenance Insurance MEDICARE [facility] Advance Directives * Full Code - [...] currently active code status orders. Care Teams Senior Sourcing Manager Relationship Specialty Start Date End Date Raina Jj MD [address] [place] [address] PCP - General Internal Medicine 05/13/24
--- OUTSIDE RECORDS SUMMARY | 2025-01-29 12:31 | XMS_ITS | Patient Health Record ---
Author Organization [facility] [place] Address [address] [place] [address] Care Team Providers Care Performance Improvement Director Name Role Phone Parviz JONES, Raina Marks Primary Care Provider Un available Veto Ortiz Unavailable [phone] Allergies Allergen (clinical drug ingredient) Drug/Non Drug Allergy documented on EMR Reaction Allergy Type Onset Date Status metronidazole Flagyl diarrhea Drug Allergy Act maliha Reason For Referral No Information Medications Medication SIG (Take, Route, Fr equency, Duration) Notes Start Date End Date Status Amitriptyline HCl 25 MG (Prior Auth: Rx Ref#:[id number]) Oral; Duration: 90 Active Social History Tobacco [...] Status Risk Notes Problem Acquired hallux valgus (97315628) Hallux valgus (acquired), left foot (M20.12) Active confirmed Problem Acquired hallux valgus (97480458) Hallux valgus (acquired), right foot (M20.11) Active confirmed Problem Acquired hammer toe of left foot ([id number]) Other hammer toe(s) (acquired), left foot (M20.42) [...] [employer] [address] [place] [address] [id number] Juany Rucker Self - patient is the insured [facility] [address] [place] [address] [phone] [id number] Juany Rucker Self - patient is the insured Medical (General) History Medical History History ICD Code Measles Chicken pox Surgical History Surgery Date(Month/Year) appendectomy 05/1967 section
== END 2025-01-29 11:18 | disposition home or self-care (01) ==
PROVIDERS: PCP Internal Medicine; Visit Provider Internal Medicine
DX: Z00.00 Encounter for general adult medical examination without abnormal findings (principal); M81.0 Age-related osteoporosis without current pathological fracture; E78.5 Hyperlipidemia, unspecified; K59.09 Other constipation; Z71.89 Other specified counseling

== ENCOUNTER → 2025-01-29 10:12 | Outpatient (BNVA) | payer MEDICARE, OTHER, SELFPAY | PROVIDERS: PCP Internal Medicine; Visit Provider Internal Medicine | DX: Z00.01 Encounter for general adult medical examination with abnormal findings (principal); M81.0 Age-related osteoporosis without current pathological fracture; E78.5 Hyperlipidemia, unspecified; K59.00 Constipation, unspecified; Z71.89 Other specified counseling | CPT/HCPCS: 96127; 99397; 99497 ==